=== PATIENT | female | born 1965 | race Caucasian/White ===

== ENCOUNTER → 2016-11-11 | Outpatient (REF) | LOC: M LAB 10:25 | PROVIDERS: ATTEND Nurse Practitioner Adult Health | DX: Z02.9 Encounter for administrative examinations, unspecified (principal) ==

== ENCOUNTER 2017-05-18 08:55 | Emergency (ER) | payer OTHER, BC ==
[2017-05-18] MEDS: TETRACAINE 0.5% OPHTH SOLN 4ML OS (09:15)
[2017-05-18] MEDS: FLUORESCEIN OPHTH 1 MG STRIP OS (09:15)
[2017-05-18] MEDS: POLYVINYL ALCOHOL OPHTH SOLN 15 ML(LIQUITEARS) OS (11:00)
== END 2017-05-18 11:21 | disposition home or self-care (01) ==
LOC: M ED 08:55
DX: H57.12 Ocular pain, left eye (principal); Z77.098 Contact with and (suspected) exposure to other hazardous, chiefly nonmedicinal, chemicals; Z87.891 Personal history of nicotine dependence
CPT/HCPCS: 99284

== ENCOUNTER → 2018-02-09 | Outpatient (CLI) | payer OTHER | LOC: M LRY 17:25 | DX: S89.91XA Unspecified injury of right lower leg, initial encounter (principal); M79.89 Other specified soft tissue disorders; X58.XXXA Exposure to other specified factors, initial encounter; Y92.9 Unspecified place or not applicable | CPT/HCPCS: 73564 ==

== ENCOUNTER → 2021-02-17 | Outpatient (REF) | LOC: M LABSMTC 10:20 | PROVIDERS: ATTEND Pediatrics | DX: Z11.52 Encounter for screening for COVID-19 (principal) ==

== ENCOUNTER → 2022-02-11 | Outpatient (REF) | LOC: M LABSMTC 06:44 | PROVIDERS: ATTEND Family Medicine | DX: Z11.52 Encounter for screening for COVID-19 (principal) ==

== ENCOUNTER → 2023-12-29 | Outpatient (REF) | LOC: M EMP 13:57 | PROVIDERS: ATTEND Family Medicine | DX: Z11.52 Encounter for screening for COVID-19 (principal); U07.1 COVID-19 ==